=== PATIENT | female | born 1965 | race Caucasian/White ===

== ENCOUNTER → 2016-04-16 | Outpatient (CLI) | payer OTHER ==
[~2016-04-16] MED LIST: AMIT50TA3 PO; ASPI-586 PO; BREX2TAB PO; DESV100T PO; DOCU-143 PO; GLIP10TA13 PO; HYDR-3454 PO; LEVO50TA6 PO; LISI10TA2 PO; METF1000 PO; METO-310 PO; PROM25TA14 PO; SIMV40TA4 PO; TERA2CAP4 PO
--- OUTSIDE RECORDS SUMMARY | 2016-04-16 14:40 | XMS REPORT ---
Author KATIE Villaseñor Organization [employer] Address Unknown Phone Unavailable Care Team Providers Care Dockworker Name Role Phone KATIE SIMMONS CP Unavailable Allergies, Adverse Reactions, Alerts Substance Reaction Event Type Penicillin V Potassium Info Not Available Drug Allergy Morphine Sulfate hives Drug Allergy Codeine Sulfate hives Drug Allergy contrast dye itching Non Drug Allergy Problems No Known Problems Medications Medication Code System Code Instructions Start Date End Date Status Dosage Pristiq [facility] [address]-80 100 MG Orally Once a day 1 tablet Toujeo SoloStar [facility] [address]-11 300 UNIT/ML Subcutaneous Once a day 20 Ranitidine ND 0 Oral 1 tab Terazosin HCl [facility] [address]-02 1 MG Orally Once a day 1 capsule GlipiZIDE [facility] [address]-78 5 mg Orally Once a day 2 Rexulti [facility] [address]-29 2 MG Orally Once a day 1 tablet Simvastatin [facility] [address]-00 40 MG Orally Once a day 1 tablet in the evening Lisinopril [facility] [address]-44 10 MG Orally not defined Metformin HCl [facility] [address]-11 500 MG Orally 3 1 tablet with meals Amitriptyline HCl [facility] [address]-94 50 MG Orally Once a day 1 tablet Results No Known Results Summary Purpose [employer] Submission
--- NOTE | 2016-04-17 20:59 | Diagnostic Imaging Report ---
Digital mammogram bilateral screening. This study was compared to the prior exam of 09/12/2014. At this time, there are no current complaints. The current study was also evaluated with a Computer Aided Detection (CAD) system. FINDINGS: There is only a mild amount of fibroglandular tissue in both breasts. The asymmetric parenchymal density in the upper-outer aspect of the right breast seen previously is again evident and no different. There is no primary or secondary sign of malignancy noted. IMPRESSION: There is no evidence for malignancy. ACR BI-RADS Category 1: Negative. Result letter will be mailed to the patient. Note: At least 10% of breast cancer is not imaged by mammography. Dictated by: Dictated on workstation # [id number]
== END ==
LOC: RAD 14:37
PROVIDERS: ATTEND Nurse Practitioner Family
DX: Z12.31 Encounter for screening mammogram for malignant neoplasm of breast (principal)
CPT/HCPCS: 77067

== ENCOUNTER 2016-05-02 10:12 | Outpatient (CLI) | payer OTHER ==
[~2016-05-02] VITALS: Ht 162.6 cm; Wt 87.7 kg
[2016-05-02 10:50] VITALS: BP 118/70
[2016-05-02] MEDS ORDERED: METF1000 PO (11:14)
[2016-05-02] MEDS ORDERED: METO-310 PO (11:14)
[2016-05-02] MEDS ORDERED: GLIP10TA13 PO (11:14)
[2016-05-02] MEDS ORDERED: DESV100T PO (11:14)
[2016-05-02] MEDS ORDERED: TERA2CAP4 PO (11:14)
[2016-05-02] MEDS ORDERED: AMIT50TA3 PO (11:14)
[2016-05-02] MEDS ORDERED: ASPI-586 PO (11:14)
[2016-05-02] MEDS ORDERED: LISI10TA2 PO (11:14)
[2016-05-02] MEDS ORDERED: LEVO50TA6 PO (11:14)
[2016-05-02] MEDS ORDERED: SIMV40TA4 PO (11:14)
[2016-05-02] MEDS ORDERED: PROM25TA14 PO (11:14)
[2016-05-02] MEDS ORDERED: BREX2TAB PO (11:14)
[2016-05-02 11:15] LABS: BASOPHILS % (AUTO) 0 % (0-10); EOSINOPHILS # (AUTO) 0.1 10^3/uL (0.0-0.3); EOSINOPHILS % (AUTO) 1 % (0-10); LYMPHOCYTES # (AUTO) 1.8 X 10^3 (1.0-4.0); LYMPHOCYTES % (AUTO) 28 % (12-44); MEAN CORPUSCULAR HEMOGLOBIN 31 PG (25-34); MEAN CORPUSCULAR HGB CONC 33 G/DL (32-36); MEAN CORPUSCULAR VOLUME 97 FL (80-99); MONOCYTES # (AUTO) 0.6 X 10^3 (0.0-1.0); MONOCYTES % (AUTO) 8 % (0-12); NEUTROPHILS # (AUTO) 4.2 X 10^3 (1.8-7.8); NEUTROPHILS % (AUTO) 63 % (42-75); PLATELET COUNT 281 10^3/uL (130-400); RED BLOOD COUNT 4.04 10^6/uL (4.35-5.85); RED CELL DISTRIBUTION WIDTH 12.3 % (10.0-14.5); WHITE BLOOD COUNT 6.7 10^3/uL (4.3-11.0)
[2016-05-02 11:36] LABS: ANION GAP 13 MMOL/L (5-14); BLOOD UREA NITROGEN 14 MG/DL (7-18); BUN/CREATININE RATIO 15; CALCIUM 9.4 MG/DL (8.5-10.1); CARBON DIOXIDE 23 MMOL/L (21-32); CHLORIDE 102 MMOL/L (98-107); CREATININE SERUM 0.91 MG/DL (0.60-1.30); GFR ESTIMATED > 60; GLUCOSE 250 MG/DL (70-105); POTASSIUM 4.1 MMOL/L (3.6-5.0); SODIUM 138 MMOL/L (135-145)
== END 2016-05-02 11:05 | disposition home or self-care (01) ==
LOC: PREOP 10:12
PROVIDERS: ATTEND Surgery
DX: Z01.812 Encounter for preprocedural laboratory examination (principal); Z11.2 Encounter for screening for other bacterial diseases; K43.2 Incisional hernia without obstruction or gangrene
CPT/HCPCS: 36415; 80048; 85025; 87081

== ENCOUNTER 2016-05-08 10:20 | Day surgery (SDC) | payer OTHER ==
[~2016-05-08] VITALS: Ht 162.6 cm; Wt 87.7 kg
[~2016-05-08 10:20] MED LIST changes: -DOCU-143 PO; -HYDR-3454 PO
[2016-05-08] MEDS ORDERED: CLINDAMYCIN 600 MG/50 ML IVPB 50 ML IV ONE ×2 (10:41→11:00)
[2016-05-08 10:53] VITALS: BP 120/79
[2016-05-08] MEDS ORDERED: MUPIROCIN 2% OINT 22 GM (BACTROBAN) TUBE ONE (10:58)
[2016-05-08] MEDS ORDERED: CATHETER FLUSH 10 ML SYR IV PRN (11:00)
[2016-05-08] MEDS ORDERED: MIDAZOLAM 2 MG/2 ML (VERSED) VIAL ONE ×2 (12:13→14:40)
[2016-05-08] MEDS: LACTATED RINGERS 1,000 ML IV SCH ×2 (12:18→15:28)
[2016-05-08] MEDS ORDERED: LACTATED RINGERS 1,000 ML IV PRN (12:21)
[2016-05-08] MEDS ORDERED: MIDAZOLAM 2 MG/2 ML (VERSED) VIAL IV ONE (12:30)
[2016-05-08] MEDS ORDERED: MIDAZOLAM 2 MG/2 ML (VERSED) VIAL IVP ONE (12:30)
[2016-05-08] MEDS ORDERED: LIDOCAINE 1% INJ 20 ML (XYLOCAINE) VIAL ONE (14:38)
[2016-05-08] MEDS ORDERED: BUPIVACAINE 0.5% 30 ML (SENSORCAINE) VIAL ONE (14:38)
[2016-05-08] MEDS ORDERED: proPOfol 200 MG/20 ML (DIPRIVAN) VIAL IV ONE (14:39)
[2016-05-08] MEDS ORDERED: ONDANSETRON 4 MG/2 ML (SDV) Z0FRAN ONE (14:39)
[2016-05-08] MEDS ORDERED: ROCURONIUM 50 MG/5 ML (ZEMURON) VIAL IV ONE (14:39)
[2016-05-08] MEDS ORDERED: LIDOCAINE PF 2% 10 ML (XYLOCAINE) AMP ONE (14:39)
[2016-05-08] MEDS ORDERED: SUCCINYLCHOLINE INJ 100 MG/5 ML SYR ONE ×2 (14:39→14:41)
[2016-05-08] MEDS ORDERED: LACTATED RINGERS 1,000 ML IV ONE ×2 (14:39→15:10)
[2016-05-08] MEDS ORDERED: fentaNYL INJECTION 250 MCG/5 ML AMP ONE (14:40)
--- NOTE | 2016-05-08 14:47 | Progress Note-Pre Operative ---
Pre-Operative Progress Note H&P Reviewed The H&P was reviewed, patient examined and no changes noted. Date H&P Reviewed: May 08, 2016 Time H&P Reviewed: 14:46 Pre-Operative Diagnosis: INCISIONAL HERNIA BASILIA DARDEN DO May 08, 2016 2:47 pm
[2016-05-08] MEDS ORDERED: SEVOFLURANE (ULTANE) 15 ML INHAL SOLN ONE ×2 (14:49→16:28)
[2016-05-08] MEDS ORDERED: ONDANSETRON 4 MG/2 ML (SDV) Z0FRAN IVP PRN (15:30)
[2016-05-08] MEDS ORDERED: MEPERIDINE (DEMEROL) INJ 50 MG/ML IVP PRN (15:30)
[2016-05-08] MEDS ORDERED: fentaNYL INJECTION 100 MCG/2 ML AMP IVP PRN (15:30)
[2016-05-08] MEDS ORDERED: NEOSTIGMINE (BLOXIVERZ ) 1 MG/1ML 10 ML VIAL ONE (16:11)
[2016-05-08] MEDS ORDERED: GLYCOPYRROLATE 0.2 MG/ML (ROBINUL) 2 ML VIAL ONE (16:11)
[2016-05-08] MEDS ORDERED: HYDR-3454 PO (16:37)
[2016-05-08] MEDS ORDERED: DOCU-143 PO (16:37)
--- NOTE | 2016-05-08 16:38 | Progress Note-Post Operative ---
Post-Operative Progess Note Surgeon (s)/Bilingual Speech Language Pathologist (s) Surgeon BASILIA DARDEN DO Bilingual Speech Language Pathologist: Dr. Prescott Pre-Operative Diagnosis INCISIONAL HERNIA Post-Operative Diagnosis SAME Post-Op Procedure Note Date of Procedure: May 08, 2016 Name of Procedure Performed: Lap incisional hernia echo 4.5 inch mesh Description of the Procedure: see note Findings of the Procedure see note Anesthesia Type general Estimated blood loss (mL): minimal Specimen(s) collected/removed o BASILIA DARDEN DO May 08, 2016 4:38 pm
--- NOTE | 2016-05-08 16:40 | Discharge Inst-Simple/Standard ---
Discharge Inst-Standard Discharge Medications New, Converted or Re-Newed RX: RX on Chart Patient Instructions/Follow Up Plan of Care/Instructions/FU: Follow up with Dr. Ruiz in 2 weeks. Activity as Tolerated: No Discharge Diet: No Restrictions Other Inst to Patient Follow up Appt: Make appointment for 2 weeks. Take Medication as directed. Instructions: No lifting greater than 10 pounds. No strenuous activity. May shower in 24 hours, no tub bath or soaking. Use incentive spirometer at home as directed. No Smoking Skin/Wound Care: May remove bandages. You need to leave the white strips over incision on they will fall off on their own. Symptoms to Report: Appetite Changes, Extremity Discoloration, Numbness/Tingling, Swelling Increased , Bleeding Excessive, Eyesight Changes, Pain Increased, Urine Color Change, Constipation(Persistent), Fever over 101 degree F, Pain/Pressure in chest, Urinating Difficulty, Cough Up/Vomit Blood, Heart Beat Irreg/Pounding, Pain/ Pressure in jaw, Vaginal Bleeding Increase, Cramps in feet or legs, Lightheadedness, Pain/Pressure in shoulder, Diarrhea(Persistent), Memory Changes Suddenly, Questions/Concerns, Weight gain consecutive days, Dizziness/ Fainting, Nausea/Vomiting, Shortness of Breath, Weight gain over 2 pounds If questions or concerns contact your physician Or seek help at emergency department. KEYON JOSHUA APRN May 08, 2016 16:40
[2016-05-08 17:25] VITALS: BP 142/82
[2016-05-08] MEDS ORDERED: HYDROcodone/APAP 5 MG/325 MG (LORTAB) TAB ONE (17:37)
[2016-05-08] MEDS ORDERED: HYDROcodone/APAP 5 MG/325 MG (LORTAB) TAB PO ONE (17:45)
[2016-05-08 17:55] VITALS: BP 134/85
[2016-05-08 18:25] VITALS: BP 134/85
[2016-05-08] MEDS ORDERED: MUPIROCIN 2% OINT 22 GM (BACTROBAN) TUBE NSEACH SCH (21:00)
--- NOTE | 2016-05-11 23:51 | OPERATIVE REPORT ---
PROCEDURE PHYSICIAN: BASILIA RUIZ DATE OF PROCEDURE: 05/08/2016 PREOPERATIVE DIAGNOSIS: Incisional hernia. POSTOPERATIVE DIAGNOSIS: Incisional hernia. PROCEDURE: Laparoscopic incisional hernia repair using 4.5 Echo mesh. SURGEON: Dr. Ruiz. PRINT PROJECT MANAGER: Dr. Prescott, assisted in retraction, dissection, and closure. ANESTHESIA: General. ESTIMATED BLOOD LOSS: Minimal. COMPLICATIONS: None. INDICATIONS: The patient is a 50-year-old female who had previous cholecystectomy. She had an enlarging incisional hernia just superior to the umbilicus, causing her discomfort and wished to have it repair. She understands the risks and benefits of the procedure and wishes to proceed with the procedure. Consent was signed on the chart. PROCEDURE: The patient was taken to the operating suite. She was prepped and draped in sterile fashion. A surgical pause was performed. A 5 mm incision was made in the left upper quadrant and Veress needle was inserted into the abdomen and pneumoperitoneum was achieved. Under direct visualization of the laparoscope, a 5 mm trocar was then placed. Under direct visualization of the laparoscope, a 12 mm trocar were placed in the left lower quadrant and 5 mm trocar was placed in the right lower quadrant. A large portion of her omentum was up through the hernia which was then taken down bluntly. Once this was removed demonstrating the hernia, the hernia sac was then dissected off using Harmonic. Once this was performed, a stab incision was made and using an Endo Close the fascial defect was then closed. A 4.5 inch Echo Ventralight mesh was inserted in the abdomen and grasped with CalixtoLillian, was then insufflated and then using secure strap tacker, the outer ring of tacks was placed. The balloon was then desufflated and removed. Inner crown was then created using the secure strap tacker. The mesh had good overlay of the defect. The 12 mm trocar was then removed. The fascial defect was then closed using 0 Vicryl with Endo Close. The abdomen was then desufflated. The trocars were removed. A total of 20 mL of 0.5% Marcaine and 1% lidocaine at 50:50 ratio was used to anesthetize trocar sites. The skin was then closed using 4-0 Monocryl in a subcuticular fashion. The areas were then washed and dried. Mastisol and Steri-Strips were applied and sterile bandages were applied. The patient tolerated the procedure well without any complications. She was taken to recovery room in stable condition. Job ID: [id number] Dictated Date: 05/08/2016 20:54:52 Cigarette Vendor Date: 05/11/2016 23:44:37 / imko
--- OUTSIDE RECORDS SUMMARY | 2016-06-01 06:06 | XMS REPORT ---
Author KATIE Villaseñor Organization [employer] Address Unknown Phone Unavailable Care Team Providers Care Director Of Pediatric Rehabilitation Name Role Phone KATIE ISMMONS CP Unavailable Allergies, Adverse Reactions, Alerts Substance Reaction Event Type Penicillin V Potassium Info Not Available Drug Allergy Morphine Sulfate hives Drug Allergy Codeine Sulfate hives Drug Allergy contrast dye itching Non Drug Allergy Problems No Known Problems Medications Medication Code System Code Instructions Start Date End Date Status Dosage Pristiq [facility] [address]-53 100 MG Orally Once a day 1 tablet Toujeo SoloStar [facility] [address]-98 300 UNIT/ML Subcutaneous Once a day 20 Ranitidine ND 0 Oral 1 tab Terazosin HCl [facility] [address]-72 1 MG Orally Once a day 1 capsule GlipiZIDE [facility] [address]-66 5 mg Orally Once a day 2 Rexulti [facility] [address]-62 2 MG Orally Once a day 1 tablet Simvastatin [facility] [address]-49 40 MG Orally Once a day 1 tablet in the evening Lisinopril [facility] [address]-24 10 MG Orally not defined Metformin HCl [facility] [address]-42 500 MG Orally 3 1 tablet with meals Amitriptyline HCl [facility] [address]-59 50 MG Orally Once a day 1 tablet Results No Known Results Summary Purpose [employer] Submission
== END 2016-05-08 18:25 | disposition home or self-care (01) ==
LOC: DELPENDDIS → SDC 10:20
PROVIDERS: ATTEND Surgery
DX: K43.2 Incisional hernia without obstruction or gangrene (principal)
CPT/HCPCS: 82962; 84703; 94664